=== PATIENT | male | born 1955 | race Caucasian/White ===

== ENCOUNTER 2016-11-11 10:10 | Emergency (ER) | payer OTHER ==
[~2016-11-11] VITALS: Ht 185.4 cm; Wt 100.1 kg
[~2016-11-11 10:10] MED LIST: BACTRIM,SEPT1 TABLET PO; CEPHALEXIN500 MG PO; CLARITIN,ALAVAR10 MG PO; DEPAKOTE ER500 MG PO; DEPAKOTE500 MG PO; INVANZ1 GM IM; KEPPRA500 MG PO; KEPPRA750 MG PO; MYLANTA PO; PERCOCET 5/31 TABLET PO; ZOLOFT100 MG PO
[2016-11-11 10:28] LABS: EOSINOPHIL (%) 1.6 % (0-5); EOSINOPHIL COUNT 0.1 K/uL (0-0.3); HEMATOCRIT 52.2 % (38.0-50.0); IMMATURE GRANULOCYTE (%) 1.4 % (0.0-0.7); IMMATURE GRANULOCYTE COUNT 0.1 K/uL; INSTRUMENT ABS NEUTROPHIL CT 3.1 K/uL; LYMPHOCYTE COUNT 3.4 K/uL (1.0-2.8); MCH 31.7 PG (29.0-34.0); MCV 96.3 FL (86-99); MEAN PLAT.VOLUME 11.4 uM^3 (9.0-12.4); MONOCYTE (%) 7.5 % (3-12); MONOCYTE COUNT 0.6 K/uL (0-0.8); NEUTROPHIL (%) 42.1 % (45-76); NEUTROPHIL COUNT 3.1 K/uL (1.8-6.4); PLATELET COUNT 209 K/uL (156-360); RBC DIS.WIDTH-CV 12.8 % (11.8-14.6); RBC DIS.WIDTH-SD 45.1 % (39-53); RED BLOOD COUNT 5.42 M/uL (4.00-5.50); WHITE BLOOD COUNT 7.3 K/uL (4.1-10.2)
[2016-11-11 10:39] LABS: CHLORIDE 104 mEq/L (99-109); SODIUM 139 mEq/L (136-147)
[2016-11-11 10:41] LABS: GLUCOSE 141 mg/dL (70-99)
[2016-11-11 10:42] LABS: ANION GAP 17 MEQ/L (2-14)
[2016-11-11 10:43] LABS: TOTAL BILIRUBIN 0.3 mg/dL (0.0-1.0)
[2016-11-11 10:44] LABS: ALKALINE PHOSPHATASE 63 IU/L (3-129); SERUM ETHYL ALCOHOL < 10 mg/dL
[2016-11-11 10:45] LABS: GFR ESTIMATE (CALCULATED) > 59 mL/min/
[2016-11-11 10:46] LABS: UREA NITROGEN (BUN) 13 mg/dL (9-23)
[2016-11-11 10:50] LABS: TROP-I INTERPRETATION NEGATIVE; TROPONIN-I < 0.01 ng/mL (0.0-0.30)
[2016-11-11] MEDS ORDERED: ACETAMINOPHEN325 M3 PO (12:31)
[2016-11-11] MEDS ORDERED: GERI-LANTA LIQ355 ML PO (12:31)
[2016-11-11 15:18] LABS: ADD MEDTOX COMMENT Y; AMPHETAMINE NEGATIVE (500 ng/mL); BARBITURATES NEGATIVE (200 ng/mL); BENZODIAZEPINES PRESUMPTIVE POSITIVE (150 ng/mL); COCAINE NEGATIVE (150 ng/mL); INTERNAL CONTROLS VALID? YES; METHADONE NEGATIVE (200 ng/mL); METHAMPHETAMINE NEGATIVE (500 ng/mL); OPIATES (MORPHINE) NEGATIVE (100 ng/mL); OXYCODONE NEGATIVE (100 ng/mL); PHENCYCLIDINE NEGATIVE (25 ng/mL); PROPOXYPHENE NEGATIVE (300 ng/mL); THC CANNABINOIDS NEGATIVE (50 ng/mL); TRICYCLIC ANTIDEPRESSANTS NEGATIVE (300 ng/mL)
[2016-11-11 16:12] LABS: BENZODIAZEPINES QUANT VALUE 0 NG/ML
[2016-11-11 16:16] LABS: BENZODIAZEPINES, URINE SCREEN Negative (200 ng/mL)
[2016-11-11 16:35] VITALS: BP 133/67
== END 2016-11-11 11:48 | disposition home or self-care (01) ==
LOC: EME 10:10
PROVIDERS: Emergency Medicine
DX: G40.909 Epilepsy, unspecified, not intractable, without status epilepticus (principal); F79 Unspecified intellectual disabilities; Q99.2 Fragile X chromosome
CPT/HCPCS: 70450; 71010; 80053; 80164; 83605; 84484; 84999; 85025; 93005; 99281; 99284; G0480; J2060; J7030

== ENCOUNTER 2018-01-26 03:05 | Emergency (ER) | payer OTHER ==
[~2018-01-26] VITALS: Ht 170.2 cm; Wt 110.1 kg
[~2018-01-26 03:05] MED LIST changes: +ACETAMINOPHEN325 M3 PO; +GERI-LANTA LIQ355 ML PO
[2018-01-26 03:46] LABS: HEMATOCRIT 45.7 % (38.0-50.0); HEMOGLOBIN 15.5 G/DL (12.5-16.6); MCH 32.3 PG (29.0-34.0); MCHC 33.9 G/DL (30.0-36.0); MCV 95.2 FL (86-99); PLATELET COUNT 104 K/uL (156-360); RBC DIS.WIDTH-SD 45.8 % (39-53)
[2018-01-26 03:55] LABS: CHLORIDE 106 mEq/L (99-109); POTASSIUM 4.1 mEq/L (3.7-5.4); SODIUM 142 mEq/L (136-147)
[2018-01-26 03:58] LABS: GLUCOSE 119 mg/dL (70-99); TOTAL PROTEIN 6.4 g/dL (6.4-8.3)
[2018-01-26 04:00] LABS: TOTAL BILIRUBIN 0.3 mg/dL (0.0-1.0)
[2018-01-26 04:01] LABS: ALKALINE PHOSPHATASE 65 IU/L (3-129); CREATININE 0.7 mg/dL (0.6-1.3); GFR ESTIMATE (CALCULATED) > 59 mL/min/ (58.99-99999)
[2018-01-26 04:02] LABS: UREA NITROGEN (BUN) 12 mg/dL (9-23)
[2018-01-26 04:03] LABS: AST (GOT) 22 IU/L (2-34)
[2018-01-26 04:04] LABS: ALT (GPT) 39 IU/L (3-49)
[2018-01-26 04:05] LABS: CREATINE KINASE 40 IU/L (1-294); LIPASE 27 U/L (1.0-51.0); TOTAL CK 40 IU/L (1-294)
[2018-01-26 04:10] LABS: CKMB RELATIVE INDEX 2.5 (0.0-3.9)
[2018-01-26 04:11] LABS: TROP-I INTERPRETATION NEGATIVE; TROPONIN-I < 0.01 ng/mL (0.0-0.30)
[2018-01-26 08:11] VITALS: BP 115/69
== END 2018-01-26 08:00 | disposition home or self-care (01) ==
LOC: EME 03:05
PROVIDERS: Emergency Medicine
DX: R56.9 Unspecified convulsions (principal); R09.02 Hypoxemia; J98.4 Other disorders of lung; R91.8 Other nonspecific abnormal finding of lung field; R94.31 Abnormal electrocardiogram [ECG] [EKG]; K21.9 Gastro-esophageal reflux disease without esophagitis; G47.30 Sleep apnea, unspecified; F32.9 Major depressive disorder, single episode, unspecified; F31.9 Bipolar disorder, unspecified; Z99.89 Dependence on other enabling machines and devices; Z86.19 Personal history of other infectious and parasitic diseases; Z87.19 Personal history of other diseases of the digestive system; Z86.73 Personal history of transient ischemic attack (TIA), and cerebral infarction without residual deficits; Z90.49 Acquired absence of other specified parts of digestive tract
CPT/HCPCS: 70450; 71045; 80053; 80164; 82550; 82553; 83690; 84484; 85027; 93005; 99281; 99285